=== PATIENT | female | born 1960 | race American Indian/Alaskan Native ===

== ENCOUNTER 2018-11-08 14:02 | Outpatient (CLI) | payer BC, OTHER | END 2018-11-08 14:03 | disposition home or self-care (01) | LOC: LABHHL 14:02 | PROVIDERS: ATTEND Surgery | DX: D24.1 Benign neoplasm of right breast (principal) | CPT/HCPCS: 36415; 88305; 88341; 88342 ==

== ENCOUNTER 2018-12-09 10:59 | Outpatient (CLI) | payer BC ==
--- NOTE | 2018-12-10 09:46 | Magnetic Resonance Report ---
BILATERAL BREAST MR WITHOUT AND WITH GADOLINIUM INDICATION: Newly diagnosed right breast cancer. A recent biopsy done elsewhere revealed infiltratin g ductal carcinoma grade 2 triple negative COMPARISONS: 11/08/2018 right mammogram and 05/06/2018 bilateral mammogram from [place] TECHNIQUE: Axial 1.0 mm T1 without, axial high-resolution 2.0 mm T2 and axial 1.0 mm dynamic vibrant high-resolution postcontrast T1 fat saturation sequences on a 1.5 Sharron magnet. The examination was p erformed with an 8-channel dedicated [place] breast coil. Post-processing with CAD and subtraction was performed on an etaskr workstation. 14 cc of MultiHance was injected without incident for the con trast portion of the exam. Consent was obtained prior to the administration of the contrast. FINDINGS: RIGHT BREAST: Mild background parenchymal enhancement. The known cancer is an irregular enhancing mas s in the upper outer quadrant 6 cm from the nipple with a biopsy clip measuring 1.6 x 1.3 x 1.0 cm. I t demonstrates heterogeneous enhancement with mixed kinetics, 163% peak enhancement and 19% type III washout.2 is an oval slightly irregular mass in the lower outer quadrant 5.4 cm from the nipple measu ring 5.3 x 4.4 x 3.8 mm. It is located approximately 3 cm inferior to the known cancer and is below t he nipple. Lesion 2 demonstrates heterogeneous enhancement with mixed kinetics, 74% peak enhancement and 32% type III washout. There is no mammographic correlate. Several additional smaller oval relativ charlie smooth enhancing lesions in the inner breast are suspicious. No suspicious right axillary or righ t internal mammary lymph nodes. LEFT BREAST: Minimal background parenchymal enhancement. No mass or suspicious enhancement. No suspic ious left axillary or left internal mammary lymph nodes. IMPRESSION: 1. Known right breast cancer in the upper outer quadrant measuring 1.6 cm. 2. A suspicious 5 mm mass in the right breast lower outer quadrant. This lesion would be amenable to MRI guided percutaneous needle biopsy if it is not identifiable by ultrasound for ultrasound-guided n eedle biopsy. 3. Several small additional smaller enhancing lesions in the inner right breast which are not large e nough for MRI guided needle biopsy. 4. Negative left breast. 5. No suspicious lymph nodes. BI-RADS Category 6 Known Cancer Signer Name: Lul Romero MD Signed: 12/10/2018 9:42 AM Workstation Name: [id number]
== END 2018-12-09 11:00 | disposition home or self-care (01) ==
LOC: SPVIMAG 10:59
PROVIDERS: ATTEND Surgery
DX: C50.411 Malignant neoplasm of upper-outer quadrant of right female breast (principal)
CPT/HCPCS: A9577; C8908; 77049

== ENCOUNTER 2019-01-08 14:08 | Outpatient (CLI) | payer BC ==
--- NOTE | 2019-01-08 15:28 | Ultrasound Report ---
LIMITED RIGHT BREAST ULTRASOUND HISTORY: Known right breast cancer and 2 suspicious foci of nonmass enhancement on recent MRI. COMPARISON: 12/09/2018 MRI FINDINGS: Focused sonographic evaluation upon the inferior location of the right breast demonstrates no distinct abnormality to correlate with the MRI findings. IMPRESSION No ultrasound findings to correlate with suspicious MRI findings. Recommend MRI guided needle biopsy based on the recent MRI findings. BIRADS 6: Known biopsy proven malignancy. Signer Name: Lul Romero MD Signed: 01/08/2019 3:24 PM Workstation Name: [id number]
== END 2019-01-08 14:09 | disposition home or self-care (01) ==
LOC: SPVWC 14:08
PROVIDERS: ATTEND Surgery
DX: C50.411 Malignant neoplasm of upper-outer quadrant of right female breast (principal)

== ENCOUNTER 2019-02-06 09:03 | Outpatient (CLI) | payer BC ==
--- NOTE | 2019-02-06 13:28 | Mammography Report ---
DIGITAL DIAGNOSTIC MAMMOGRAM WITHOUT CAD, -- 02/06/2019 INDICATION: For clip placement after MRI biopsy at 2 sites. Known in the upper breast. TECHNIQUE: Digital right mammographic imaging was performed. COMPARISON: 11/08/2018 FINDINGS: Breast Density: The breast is heterogeneously dense, which may obscure small masses. 2 new biopsy clips are identified and correlate with biopsy sites 1 and 2. Both of these clips are at or below the nipple.The clip at site 1 is slightly more lateral than expected and the clip at site 2 is more medial than expected. This may be related to hematomas at both sites. IMPRESSION: Satisfactory clip deployment with slight discordance of clip position at both sites which may be related to hematomas. Follow up recommendation: Clinical exam BI-RADS Category 6: Known Biopsy-Proven Malignancy. A "normal" or negative report should not discourage follow up or biopsy of a clinically significant f inding. A written summary of these findings will be mailed to the patient. The patient will be entered into a mammography reporting system which will generate a reminder letter for the patient's next appointmen t at the appropriate interval. According to the [employer], yearly mammograms are recommended starting at age 40 and continuing as long as a woman is in good health. Breast MRI is recommended for women with an rito roximately 20-25% or greater lifetime risk of breast cancer, including women with a strong family his tory of breast or ovarian cancer and women who have been treated for Hodgkin's disease. Signer Name: Lul Romero MD Signed: 02/06/2019 1:24 PM Workstation Name: [id number]
--- NOTE | 2019-02-06 14:27 | Magnetic Resonance Report ---
RIGHT MRI GUIDED BREAST BIOPSY AT 2 SITES INDICATION: Known right breast cancer and 2 additional suspicious lesions by MRI. COMPARISONS: 12/09/2018 TECHNIQUE: Axial 1.0 mm T1 without and axial 1.0 mm dynamic vibrant high-resolution postcontrast T1 f at saturation sequences on a 1.5 Sharron magnet. 15.0 cc of MultiHance was injected without incident fo r the contrast portion of the exam. Consent was obtained prior to the administration of the contrast. Lesion targeting was performed with [employer] software. FINDINGS: A timeout was called and the skin was marked. A localization scan was performed and two lesions were targeted. Using 1% lidocaine for superficial anesthesia and 2% lidocaine with epinephrine for deep an esthesia, a 9 gauge vacuum-assisted biopsy was performed at both sites. Satisfactory targeting and sa mpling was confirmed with imaging. Multiple cores were obtained and placed in formalin. The patient t olerated the procedure well and there were no apparent complications. Hemostasis was achieved with mi nimal effort. Steri-Strips and a sterile dressings were applied. Two-view mammogram demonstrated conc ordant clip placement at both sites. IMPRESSION: Uncomplicated MRI guided needle biopsies at two sites. Signer Name: Lul Romero MD Signed: 02/06/2019 2:22 PM Workstation Name: [id number]
== END 2019-02-06 09:04 | disposition home or self-care (01) ==
LOC: SPVIMAG 09:03
PROVIDERS: ATTEND Surgery
DX: C50.411 Malignant neoplasm of upper-outer quadrant of right female breast (principal)
CPT/HCPCS: 19085; 19086; 77065; 88305; 88341; 88342; A4648; A9577

== ENCOUNTER 2019-03-10 06:14 | Day surgery (SDC) | payer BC ==
[~2019-03-10 06:14] MED LIST: BUPIVACAINE/PF (0.25%) 2.5 MG/ML 30 ML VIAL INFILTRATI ONE; CELECOXIB 200 MG CAP PO NR; GABAPENTIN 300 MG CAP PO NR; LACTATED RINGERS 1,000 ML IV SCH; LIDOCAINE (1%) 10 MG/1 ML VIAL 20 ML MDV INFILTRATI ONE; MIDAZOLAM 2 MG/2 ML INJ IV NR; ceFAZolin/Water 2 GM/20 ML 2 GM/20 ML SYRINGE IV NR; fentaNYL 100 MCG/2 ML INJ IV PRN
[2019-03-10] MEDS ORDERED: BACTERIOSTATIC SODIUM CHLORIDE 0.9% 30 ML VIAL INFILTRATI ONE (06:43)
[2019-03-10 07:37] LABS: Basophils # (Auto) 0.1 K/mm3 (0.0-0.1); Eosinophils # (Auto) 0.1 K/mm3 (0.0-0.4); Eosinophils % (Auto) 1.8 % (0.0-4.3); Hematocrit 38.6 % (30.3-42.9); Hemoglobin 12.6 gm/dl (10.1-14.3); Lymphocytes # (Auto) 2.6 K/mm3 (1.2-5.4); Lymphocytes % (Auto) 36.8 % (13.4-35.0); Mean Corpuscular HGB Conc 33 % (30-34); Mean Corpuscular Volume 91 fl (79-97); Monocytes # (Auto) 0.4 K/mm3 (0.0-0.8); Monocytes % (Auto) 5.9 % (0.0-7.3); Platelet Count 269 K/mm3 (140-440); Red Blood Count 4.26 M/mm3 (3.65-5.03); Red Cell Distribution Width 14.2 % (13.2-15.2)
--- NOTE | 2019-03-10 07:37 | Anesthesia Consultation ---
Anesthesia Consult and Med Hx Date of service: 03/10/19 - Airway Anesthetic Teeth Evaluation: Good ROM Head & Neck: Adequate Mental/Hyoid Distance: Adequate Mallampati Class: Class II Intubation Access Assessment: Probably Good - Pulmonary Exam CTA: Yes - Cardiac Exam Cardiac Exam: RRR - Pre-Operative Health Status ASA Pre-Surgery Classification: ASA2 Proposed Anesthetic Plan: General Nerve Block: PEC - Pulmonary Hx Smoking: No Hx Respiratory Symptoms: No - Cardiovascular System Hx Hypertension: Yes (no rx for antihypertensive yet) Hx Heart Attack/AMI: No Hx Percutaneous Transluminal Coronary Angioplasty (PTCA): No - Central Nervous System CVA: No Hx Psychiatric Problems: Yes - Gastrointestinal Hx Gastroesophageal Reflux Disease: No - Endocrine Hx Renal Disease: No Hx Liver Disease: No Hx Insulin Dependent Diabetes: No Hx Non-Insulin Dependent Diabetes: No Hx Thyroid Disease: No - Other Systems Hx Cancer: Yes (breast Ca) Hx Obesity: Yes (BMI 32) - Additional Comments Anesthesia Medical History Comments: Patient is Jehova's witness and refuses blood products. See advanced directive for products patient will accept.
--- NOTE | 2019-03-10 07:38 | Anesthesia Day of Surgery ---
Anesthesia Day of Surgery - Day of Surgery Patient Examined: Yes Patient H&P Reviewed: Yes Patient is NPO: Yes
[2019-03-10] MEDS ORDERED: LIDOCAINE MPF (2%) 20 MG/1 ML VIAL 5 ML ONE (07:43)
[2019-03-10] MEDS ORDERED: ROCURONIUM 50 MG/5 ML INJ IV ONE (07:43)
[2019-03-10] MEDS ORDERED: fentaNYL 100 MCG/2 ML INJ ONE (07:44)
[2019-03-10] MEDS ORDERED: MIDAZOLAM 2 MG/2 ML INJ ONE (07:44)
[2019-03-10] MEDS ORDERED: PROPOFOL 200 MG/20 ML VIAL IV ONE (07:44)
[2019-03-10] MEDS ORDERED: LIDOCAINE (1%) 10 MG/1 ML VIAL 20 ML MDV ONE ×3 (07:46→08:15)
[2019-03-10] MEDS ORDERED: SODIUM CHLORIDE P/F VIAL 10 ML 10 ML ONE (07:47)
[2019-03-10] MEDS ORDERED: METHYLENE BLUE 50 MG/10 ML AMP ONE (07:47)
[2019-03-10] MEDS ORDERED: BUPIVACAINE/PF (0.25%) 2.5 MG/ML 30 ML VIAL INFILTRATI ONE (07:47)
[2019-03-10] MEDS ORDERED: BUPIVACAINE-EPINEPHRINE/PF 0.5%-1:200,000 (30 ML) VIAL INFILTRATI ONE (07:58)
[2019-03-10] MEDS ORDERED: HYDROmorphone 1 MG/1 ML INJ IV PRN (08:00)
[2019-03-10] MEDS ORDERED: ONDANSETRON 4 MG/2 ML INJ ONE (09:49)
[2019-03-10] MEDS ORDERED: dexAMETHasone 20 MG/5 ML VIAL ONE (09:49)
[2019-03-10] MEDS ORDERED: WATER FOR IRRIG STERILE 1,000 ML BOTTLE IR ONE (10:10)
[2019-03-10] MEDS ORDERED: ePHEDrine SULFATE 50 MG/1 ML INJ ONE (10:15)
[2019-03-10] MEDS ORDERED: LACTATED RINGERS 1,000 ML ONE (11:24)
--- NOTE | 2019-03-10 11:25 | Mammography Report ---
NEEDLE LOCALIZATION AND HOOKWIRE PLACEMENT RIGHT BREAST X2 CLINICAL: Right breast cancer at 11:00 and status post MRI guided biopsy of a fibroadenoma with a pap illoma at 6:00. FINDINGS: Using mammographic guidance, sterile technique and 1% lidocaine for anesthesia, a 7.5 cm Carlton wkins needle and hookwire were placed from a medial approach to localize a biopsy clip at 6:00. Satis factory positioning was confirmed by orthogonal views and the needle was removed. A 5.0 cm Yip ne edle and hookwire were placed from a CC from above approach to localize the known cancer at 11:00. Sa tisfactory positioning was confirmed by orthogonal views and the needle was removed. The patient tolerated the procedure well and there were no apparent complications. Sterile dressings were applied at both sites. IMPRESSION: Uncomplicated needle localization and hookwire placement x2 right breast. Signer Name: Lul Romero MD Signed: 03/10/2019 11:21 AM Workstation Name: [id number]
[2019-03-10] MEDS ORDERED: HYDROmorphone 1 MG/1 ML INJ ONE (12:20)
--- NOTE | 2019-03-10 12:31 | Mammography Report ---
SPECIMEN RADIOGRAPH RIGHT BREAST INDICATION: post exc bx. COMPARISON: Same day needle localization images. FINDINGS: 2 localizer clips and a hookwire are identified within the specimen. The clips correlate with the kno wn cancer. IMPRESSION: Excision of the known cancer. Signer Name: Lul Romero MD Signed: 03/10/2019 12:26 PM Workstation Name: [id number]
[2019-03-10] MEDS ORDERED: ceFAZolin 1 GM VIAL ONE (13:33)
[2019-03-10] MEDS ORDERED: SODIUM CHLORIDE 0.9% 100 ML ONE (13:33)
[2019-03-10] MEDS ORDERED: BACITRACIN ZINC OINT 28.4 GM TP ONE (13:55)
--- NOTE | 2019-03-10 14:27 | Short Stay Summary ---
Short Stay Documentation Date of service: 03/10/19 - History H&P: obtained from office - Allergies and Medications Current Medications: Allergies kiwi Allergy (Verified 03/07/19 10:31) Anaphylaxis marta Allergy (Verified 03/07/19 10:31) Anaphylaxis melon Allergy (Verified 03/07/19 10:31) Anaphylaxis walnut Allergy (Verified 03/07/19 10:31) Itching Mouth itching that progresses to severe inflammation Home Medications Medication Instructions Recorded Confirmed Last Taken Type B Complex with Vitamin C [Vitamin 1 tab PO DAILY 03/07/19 03/10/19 03/09/19 09:00 History B-Complex with Vit C] Fexofenadine HCl [Ann Marie Allergy] 180 mg PO DAILY 03/07/19 03/10/19 03/07/19 09:00 History Multivit with Calcium,Iron,Min 1 each PO DAILY 03/07/19 03/10/19 03/08/19 09:00 History [One Daily Women's] Omeprazole 40 mg PO DAILY 03/07/19 03/10/19 03/10/19 05:30 History HYDROcodone/APAP 5-325 [Fromberg 1 each PO Q6HR PRN #12 tablet 03/10/19 Unknown Rx 5/325] Active Medications Celecoxib (Celebrex) 200 mg PO PREOP NR Stop: 03/10/19 23:59 Last Admin: 03/10/19 07:40 Dose: 200 mg Documented by: Fentanyl (Sublimaze) 100 mcg IV ONCE PRN PRN Reason: sedation for nerve block Stop: 03/10/19 23:59 Last Admin: 03/10/19 09:11 Dose: 50 mcg Documented by: Gabapentin (Gabapentin) 300 mg PO PREOP NR Stop: 03/10/19 23:59 Last Admin: 03/10/19 07:40 Dose: 300 mg Documented by: Hydromorphone HCl (Dilaudid) 0.5 mg IV Q10MIN PRN PRN Reason: Pain , Severe (7-10) Stop: 03/10/19 15:00 Cefazolin Sodium (Ancef/Sterile Water 2 Gm/20 Ml) 2 gm in 20 mls @ 80 mls/hr IV PREOP NR; Protocol Stop: 03/10/19 23:59 Lactated Ringer's (Lactated Ringers) 1,000 mls @ 100 mls/hr IV DIRECT DENIS Last Admin: 03/10/19 09:05 Dose: 100 mls/hr Documented by: Midazolam HCl (Versed) 2 mg IV PREOP NR Stop: 03/10/19 23:59 Last Admin: 03/10/19 09:10 Dose: 2 mg Documented by: - Brief post op/procedure progress note Date of procedure: 03/10/19 Pre-op diagnosis: Right Breast Cancer Post-op diagnosis: same Procedure: Right breast Needle Localized Partial Mastectomy, [place] Lymph Node Biopsy, Right Needle Localized Excisional Biopsy Anesthesia: JESSENIA Surgeon: MAIDA PATEL Senior Technical Project Manager: MAE LEI ([facility]) Estimated blood loss: minimal Pathology: list Specimen disposition: to lab Condition: stable - Disposition Condition at discharge: Stable Disposition: DC-01 TO HOME OR SELFCARE Short Stay Discharge Plan Follow up with: KYLAH PURCELL MD [Primary Care Provider] - 7 Days Prescriptions: HYDROcodone/APAP 5-325 [Fromberg 5/325] 1 each PO Q6HR PRN #12 tablet PRN Reason: Pain
--- NOTE | 2019-03-10 14:40 | Operative Report ---
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 Show Jumping Instructor: Clarisse Paul M.D. Anesthesia: Gen. 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 Recommendations were to proceed with a right breast partial mastectomy and a right breast excisional biopsy for right breast papilloma given benign high risk breast cancer lesion. Patient wished to proceed with the above procedures. Patient understands the role of adjuvant XRT and will repeat receptors on final pathology. She understands the potential for adjuvant chemotherapy and understands if area of papilloma shows any concerns for malignancy that additional surgery may be indicated. Procedure detail: The patient was taken to radiology with wires placed at both areas of concern. Anesthesia placed right pectoral block. The patient was then taken to the operating room. Gen. anesthesia was administered. The right nipple was injected with radioisotope. Right breast and axilla were prepped and draped in the normal sterile operative fashion. The wires were identified. Timeout was performed. Gamma probe was inserted into the axilla. The area of hot spot was identified. A right axillary incision was made with a 15 blade knife with dissection taken down to the subcutaneous tissues. The axillary fascia was opened with the Bovie cautery. 3 SLNs were identified. All remaining counts were less than 10% of the highest count. Lymph node was sent to pathology for permanent processing. Hemostasis was obtained in the right axillary cavity. Axillary cavity was appropriately irrigated and suctioned. Hemostasis was noted. Axillary fascia was approximated and closed using interrupted 3-0 Vicryl and the skin brought together and closed using a running 4-0 Monocryl followed by skin affix. Attention was then taken towards the right breast at area of known cancer. Ultrasound was used to sonya the area of incisions for the partial mastectomy of known cancer and right lower inner breast at area of known papilloma. Lateral b reast incision was made of the upper outer quadrant around 11:00 position with a 15 blade knife and dissection taken down to subcutaneous tissues. First began raising of the superior flap with removal of the wire from the skin with dissection taken down to the pectoralis muscle, followed by raising of the inferior flap, medial flap and lateral flap with all flaps taken down to the pectoralis muscle. The breast area of concern was appropriately removed posteriorly from the pectoralis muscle with the aid of the Bovie cautery. The wire was not encountered. Specimen was marked and then sent to pathology and radiology; radiograph specimen with wire and clips present. Additional caudal and inferior anterior margin was taken as well given concerns for close margin, ultrasound was used and anterior inferior margin noted for probable reactive tissue but additional margin was taken to ensure negative margin. Breast cavity was irrigated and hemostasis was obtained. The posterior deep breast tissues were approximated and closed using interrupted 3-0 Vicryl. The subcutaneous tissues were approximated and closed using interrupted 3-0 Vicryl followed by closing of the skin with a running 4-0 Monocryl and skin affix. Attention was then taken towards the lower inner right breast at area of known papilloma. A medial periareolar skin incision was made with a 15 blade knife. First began with raising of the medial flap followed by raising of the lateral with the removal of the wire from the skin followed by raising of the inferior and medial flaps, with all flaps taken down posteriorly. The area of concern was removed with the aid of the Bovie cautery. The wire was noted more medially upon removal and additional tissue was resected with the wire. Specimen was sent to radiology and pathology. Radiograph specimen with no clip present and thought that clip was removed during suctioning and wire noted for surrounding tissue present. Hemostatis was obtained. The deep breast tissue was approximated using interrupted 3-0 Vicryl followed by closing of the skin with a running 4-0 Monocryl and skin affix. She tolerated surgery very well and was awakened from anesthesia without any complications and transferred to PACU in good condition.
[2019-03-10 16:15] VITALS: BP 121/65
--- NOTE | 2019-03-10 16:30 | Post Anesthesia Evaluation ---
- Post Anesthesia Evaluation Patient Participated: Yes Airway Patent: Yes Stable Respiratory Function: No Nausea/Vomiting: Yes Temp > 96.8F: Yes Pain Manageable: Yes Adequeate Hydration: Yes Anesthesia Complications: No Block Receding Appropriately: Yes Patient on Ventilator: No
--- NOTE | 2019-03-11 09:13 | Mammography Report ---
SPECIMEN RADIOGRAPH RIGHT BREAST INDICATION: POST EXC BX. Excision of a fibroadenoma with a papilloma. COMPARISON: Same day images at needle localization. FINDINGS: A hookwire is identified within the specimen. No clip is identified. IMPRESSION: No clip is identified within the specimen. Possibilities include a retention of the clip in the breast or loss of the clip from the specimen at the time of or after excision. Signer Name: Lul Romero MD Signed: 03/11/2019 9:09 AM Workstation Name: [id number]
== END 2019-03-10 06:15 | disposition home or self-care (01) ==
LOC: OR 06:14
PROVIDERS: ATTEND Surgery
DX: C50.411 Malignant neoplasm of upper-outer quadrant of right female breast (principal); D24.1 Benign neoplasm of right breast; I10 Essential (primary) hypertension; E66.9 Obesity, unspecified; M19.90 Unspecified osteoarthritis, unspecified site; K21.9 Gastro-esophageal reflux disease without esophagitis; Z68.32 Body mass index [BMI] 32.0-32.9, adult; Z98.890 Other specified postprocedural states; Z87.442 Personal history of urinary calculi; Z79.82 Long term (current) use of aspirin; Z80.8 Family history of malignant neoplasm of other organs or systems; Z91.018 Allergy to other foods; Z86.2 Personal history of diseases of the blood and blood-forming organs and certain disorders involving the immune mechanism; Z88.8 Allergy status to other drugs, medicaments and biological substances
CPT/HCPCS: 19125; 19281; 19282; 19301; 36415; 38525; 38792; 76098; 78800; 85025; 88307; 88333; 88342; 88368; A9541; J0690; J1100; J1170; J2250; J2405; J2704; J3010; J7120; Q9968; 64450; 88341

== ENCOUNTER 2020-04-01 10:22 | Outpatient (CLI) | payer BC ==
--- NOTE | 2020-04-01 11:23 | Mammography Report ---
DIGITAL SCREENING MAMMOGRAM WITH CAD, 04/01/2020 INDICATION: Routine screening mammography. The patient has a personal history of right breast cancer treated with lumpectomy and radiation. TECHNIQUE: Digital bilateral 2D mammography was obtained in the craniocaudal and mediolateral obliq ue projections. This examination was interpreted with the benefit of Computer-Aided Detection analysi s. COMPARISON: 09/04/2019, 11/08/2018 FINDINGS: Breast Density: The breasts are heterogeneously dense, which may obscure small masses. There is no evidence of dominant mass, suspicious calcifications or architectural distortion in eithe r breast. Postsurgical and post radiation change is noted in the right breast. IMPRESSION: Follow up recommendation: Routine yearly BI-RADS Category 2: Benign. A "normal" or negative report should not discourage follow up or biopsy of a clinically significant f inding. A written summary of these findings will be mailed to the patient. The patient will be entered into a mammography reporting system which will generate a reminder letter for the patient's next appointmen t at the appropriate interval. The [employer] recommends yearly mammograms starting at age 40 and continuing as l mariia as a woman is in good health. Breast MRI is recommended for women with an approximate 20-25% or greater lifetime risk of breast cancer, including women with a strong family history of breast or ova judie cancer or who have been treated for Hodgkin's disease. Signer Name: Flor Gutiérrez MD Signed: 04/01/2020 11:19 AM Workstation Name: [id number]
== END 2020-04-01 10:23 | disposition home or self-care (01) ==
LOC: SPVWC 10:22
PROVIDERS: ATTEND Surgery
DX: Z12.31 Encounter for screening mammogram for malignant neoplasm of breast (principal)
CPT/HCPCS: 77067

== ENCOUNTER 2020-09-07 10:40 | Outpatient (CLI) | payer BC, OTHER ==
--- NOTE | 2020-09-07 11:27 | Mammography Report ---
DIGITAL DIAGNOSTIC MAMMOGRAM WITH CAD , 09/07/2020 CLINICAL INFORMATION / INDICATION: PERSONAL HX OF BREAST CA TECHNIQUE: Digital right mammographic imaging was performed. This examination was interpreted with the benefit of Computer-aided Detection analysis. COMPARISON: 09/04/2019 FINDINGS: Breast Density: The breasts are heterogeneously dense, which may obscure small masses. No dominant mass, suspicious calcifications or architectural distortion in the right breast. Postlumpectomy and radiation change are again noted in the upper outer quadrant of the right breast. Post lumpectomy site/scar appears unchanged from mammogram 1 year ago. 2 biopsy clips are again noted in the anterior to middle aspect of the upper outer quadrant, right breast. Scarring is again noted in the visualized portion of the right axilla. IMPRESSION: No mammographic evidence of malignancy. Follow up recommendation: Resumption of annual screening mammography in 6 months. BI-RADS Category 2: Benign. A "normal" or negative report should not discourage follow up or biopsy of a clinically significant f inding. A written summary of these findings will be mailed to the patient. The patient will be entered into a mammography reporting system which will generate a reminder letter for the patient's next appointmen t at the appropriate interval. According to the [employer], yearly mammograms are recommended starting at age 40 and continuing as long as a woman is in good health. Breast MRI is recommended for women with an rito roximately 20-25% or greater lifetime risk of breast cancer, including women with a strong family his tory of breast or ovarian cancer and women who have been treated for Hodgkin's disease. Signer Name: Jnany Limon MD Signed: 09/07/2020 11:23 AM Workstation Name: [id number] [email or web address]
== END 2020-09-07 10:41 | disposition home or self-care (01) ==
LOC: SPVWC 10:40
PROVIDERS: ATTEND Surgery
DX: R92.8 Other abnormal and inconclusive findings on diagnostic imaging of breast (principal); Z85.3 Personal history of malignant neoplasm of breast

== ENCOUNTER 2021-08-23 10:51 | Outpatient (CLI) | payer OTHER ==
--- NOTE | 2021-08-24 17:41 | Mammography Report ---
DIGITAL SCREENING MAMMOGRAM WITH CAD, 08/23/2021 CLINICAL INFORMATION / INDICATION: Routine screening mammography. Z12.31 TECHNIQUE: Digital bilateral 2D mammography was obtained in the craniocaudal and mediolateral obliqu e projections. This examination was interpreted with the benefit of Computer-Aided Detection analysis . COMPARISON: Prior mammogram 09/07/2020 and 04/01/2020 FINDINGS: Breast Density: The breasts are heterogeneously dense, which may obscure small masses. No dominant mass, suspicious calcifications, or architectural distortion in either breast. There is stable benign postlumpectomy change in the right breast, and stable biopsy clips in the righ t breast. There has been no significant change compared with the prior examinations. IMPRESSION: No mammographic evidence of malignancy. Follow up recommendation: Routine yearly BI-RADS Category 2: BENIGN. A "normal" or negative report should not discourage follow up or biopsy of a clinically significant f inding. A written summary of these findings will be mailed to the patient. The patient will be entered into a mammography reporting system which will generate a reminder letter for the patient's next appointmen t at the appropriate interval. The [employer] recommends yearly mammograms starting at age 40 and continuing as l mariia as a woman is in good health. Breast MRI is recommended for women with an approximate 20-25% or greater lifetime risk of breast cancer, including women with a strong family history of breast or ova judie cancer or who have been treated for Hodgkin's disease. Signer Name: Cara Sofia MD Signed: 08/24/2021 5:37 PM Workstation Name: [id number]
== END 2021-08-23 10:52 | disposition home or self-care (01) ==
LOC: SPVWC 10:51
PROVIDERS: ATTEND Surgery
DX: Z12.31 Encounter for screening mammogram for malignant neoplasm of breast (principal)
CPT/HCPCS: 77067